=== PATIENT | male | born 1955 | race Caucasian/White ===

== ENCOUNTER → 2019-08-25 09:09 | Outpatient (CLI) | payer OTHER, SELFPAY ==
--- NOTE | 2019-08-25 | DI.US.S_ITS ---
PROCEDURE: US ABDOMEN COMPLETE INDICATIONS: RUQ PAIN TECHNIQUE: Real-time scanning was performed of the abdominal and retroperitoneal organs, with image documentation. COMPARISON: None. FINDINGS: Liver: Liver is normal in size and homogeneous in echotexture. Gallbladder: Gallbladder is normal in sonographic appearance without gallstones, gallbladder wall thickening, pericholecystic fluid, or abnormal sonographic Wilson's. Biliary ducts: Intrahepatic bile ducts are non-dilated. Extrahepatic bile duct caliber measures 5 mm. Normal is 6-7 mm or less in diameter, or 10 mm or less post-cholecystectomy. Pancreas: Visualized portions of the pancreas are sonographically normal. Spleen: Spleen is normal in size and homogeneous in echotexture. Kidneys: Kidneys are normal in size and echotexture. Right kidney measures 10.4 cm long; left kidney measures 10.9 cm long. There are small echogenic foci in the bilateral kidneys. Largest on the right measures 4 mm. Largest on the left measures approximately 4 mm. No hydronephrosis. No solid masses. Aorta: Visualized aorta is normal in caliber at less than 3 cm. Iliacs: Proximal common iliac arteries are normal in caliber at less than 2.5 cm. IVC: Intrahepatic inferior vena cava is patent. Miscellaneous: No free abdominal fluid. IMPRESSION: Echogenic foci identified in the bilateral kidney possibly representing nonobstructing renal stones. Otherwise, no sonographic abnormalities identified in the abdomen to explain patient's right upper quadrant abdominal pain. Dictated by: William Pagan M.D. on 08/25/2019 at 11:43 Approved by: William Pagan M.D. on 08/25/2019 at 11:51
== END ==
PROVIDERS: PCP Family Medicine; Referring Provider Family Medicine; Visit Provider Family Medicine
DX: R10.11 Right upper quadrant pain (principal)
CPT/HCPCS: 76700

== ENCOUNTER → 2021-03-06 11:57 | Outpatient (CLI) | payer OTHER, SELFPAY ==
[2021-03-06 21:15] LABS: COVID19 - ORCAS (NP or Nasal) Negative (Negative)
== END ==
PROVIDERS: PCP Family Medicine; Referring Provider Physician Assistant Medical; Visit Provider Physician Assistant Medical
DX: Z20.822 Contact with and (suspected) exposure to COVID-19 (principal)
CPT/HCPCS: U0003

== ENCOUNTER → 2021-11-13 09:18 | Outpatient (CLI) | payer OTHER, SELFPAY ==
[2021-11-13 19:19] LABS: Add Manual Diff / Slide Review NO; Basophils Absolute Auto 0 /uL (0-100); Basophils Percent Auto 0.6 % (0-2); Eosinophils Absolute Auto 100 /uL (0-450); Eosinophils Percent Auto 1.8 % (2-4); Hematocrit 44.2 % (41-53); Hemoglobin 14.8 g/dL (13.5-17.5); Lymphocytes Absolute Auto 900 /uL (1100-4500); Mean Corpuscular HGB Conc 33.5 % (30-36); Mean Corpuscular Hemoglobin 32.8 PG (26-34); Mean Corpuscular Volume 97.9 fL (80-100); Monocytes Absolute Auto 500 /uL (0-900); Monocytes Percent Auto 11.8 % (3-14); Neutrophils Absolute Auto 2800 /uL (1500-7000); Neutrophils Percent Auto 64.8 % (50-75); Platelet Count 265 X10^3/uL (150-400); Red Blood Cell Count 4.51 X10^6/uL (4.5-5.9); Red Cell Distribution Width 13.6 % (11.6-14.8); White Blood Cell Count 4.4 X10^3/uL (4.5-11.0)
[2021-11-13 19:30] LABS: Alanine Aminotransferase 34 IU/L (<50); Albumin 4.3 g/dL (3.5-5.0); Albumin Globulin Ratio 1.6 (1.0-2.8); Alkaline Phosphatase 78 U/L (38-126); Aspartate Aminotransferase 38 IU/L (17-59); BUN Creatinine Ratio 18.7 (6-22); Bilirubin Total 0.7 mg/dL (0.2-1.3); Blood Urea Nitrogen 17 mg/dL (9-20); Carbon Dioxide 27 mmol/L (22-32); Chloride 103 mmol/L (98-107); Cholesterol 220 mg/dL (140-199); Estimated Glomerular Filt Rate > 60 mL/min (>60); Globulin 2.7 g/dL (1.7-4.1); Glucose 107 mg/dL (80-110); HDL Cholesterol 91 mg/dL (40-60); HEMOLYSIS < 15 (0-50); LDL Cholesterol Calculated 106 mg/dL (<100); Potassium 4.3 mmol/L (3.4-5.1); Sodium 139 mmol/L (137-145); Triglycerides 114 mg/dL (35-150)
[2021-11-13 19:46] LABS: Vitamin D 25 Hydroxy (D3) 39.9 ng/mL (30.0-100.0)
[2021-11-13 20:01] LABS: Prostate Specific Antigen Scrn 2.11 ng/mL (0.1-4.0)
== END ==
PROVIDERS: PCP Family Medicine; Visit Provider Family Medicine
DX: E78.00 Pure hypercholesterolemia, unspecified (principal); Z12.11 Encounter for screening for malignant neoplasm of colon; Z12.5 Encounter for screening for malignant neoplasm of prostate; Z13.1 Encounter for screening for diabetes mellitus; Z13.6 Encounter for screening for cardiovascular disorders
CPT/HCPCS: 80053; 80061; 82306; 85025; G0103

== ENCOUNTER → 2023-04-17 12:48 | Outpatient (CLI) | payer MEDICARE, SELFPAY | PROVIDERS: PCP Family Medicine; Visit Provider Physician Assistant | DX: R10.9 Unspecified abdominal pain (principal) | CPT/HCPCS: 87086 ==

== ENCOUNTER → 2023-04-25 10:43 | Outpatient (CLI) | payer MEDICARE, SELFPAY ==
[2023-04-25 19:15] LABS: Add Manual Diff / Slide Review NO; Basophils Absolute Auto 0 /uL (0-100); Basophils Percent Auto 0.5 % (0-2); Eosinophils Absolute Auto 100 /uL (0-450); Eosinophils Percent Auto 1.4 % (2-4); Hematocrit 43.3 % (41-53); Hemoglobin 14.9 g/dL (13.5-17.5); Lymphocytes Absolute Auto 1500 /uL (1100-4500); Lymphocytes Percent Auto 24.7 % (25-40); Mean Corpuscular HGB Conc 34.4 % (30-36); Mean Corpuscular Hemoglobin 33.3 PG (26-34); Mean Corpuscular Volume 96.7 fL (80-100); Monocytes Absolute Auto 600 /uL (0-900); Monocytes Percent Auto 10.5 % (3-14); Neutrophils Absolute Auto 3700 /uL (1500-7000); Neutrophils Percent Auto 62.9 % (50-75); Platelet Count 220 X10^3/uL (150-400); Red Blood Cell Count 4.48 X10^6/uL (4.5-5.9); Red Cell Distribution Width 13.6 % (11.6-14.8); White Blood Cell Count 5.9 X10^3/uL (4.5-11.0)
[2023-04-25 19:34] LABS: Alanine Aminotransferase 32 IU/L (<50); Albumin 4.1 g/dL (3.5-5.0); Albumin Globulin Ratio 1.6 (1.0-2.8); Alkaline Phosphatase 76 U/L (38-126); Aspartate Aminotransferase 29 IU/L (17-59); BUN Creatinine Ratio 18.8 (6-22); Bilirubin Total 0.7 mg/dL (0.2-1.3); Blood Urea Nitrogen 16 mg/dL (9-20); Calcium 8.9 mg/dL (8.4-10.2); Carbon Dioxide 28 mmol/L (22-32); Chloride 108 mmol/L (98-107); Cholesterol 236 mg/dL (140-199); Estimated Glomerular Filt Rate > 60 mL/min (>60); Globulin 2.6 g/dL (1.7-4.1); Glucose 99 mg/dL (80-110); HDL Cholesterol 69 mg/dL (40-60); HEMOLYSIS < 15 (0-50); LDL Cholesterol Calculated 138 mg/dL (<100); Lipase 114 U/L (23-300); Potassium 4.1 mmol/L (3.4-5.1); Sodium 139 mmol/L (137-145); Total Protein 6.7 g/dL (6.3-8.2); Triglycerides 145 mg/dL (35-150)
[2023-04-25 19:52] LABS: Prostate Specific Antigen Scrn 1.95 ng/mL (0.1-4.0)
== END ==
PROVIDERS: PCP Family Medicine; Visit Provider Family Medicine
DX: E78.00 Pure hypercholesterolemia, unspecified (principal); Z12.5 Encounter for screening for malignant neoplasm of prostate; R10.13 Epigastric pain; R79.9 Abnormal finding of blood chemistry, unspecified
CPT/HCPCS: 80053; 80061; 83690; 85025; G0103

== ENCOUNTER 2024-02-18 14:31 | Emergency (ER) | payer MEDICARE, SELFPAY ==
[2024-02-18 14:34] VITALS: BP 140/88; PULSE 71; RESP 18; TEMP 36.8; O2SAT 98; BMI 23.1
--- NOTE | 2024-02-18 16:53 | ED_ITS ---
HPI - Anxiety <Connie Tucker PA-C - Last Filed: 02/18/24 19:40> General Chief Complaint: Anxiety Stated Complaint: severe anxiety attack Time Seen by Provider: 02/18/24 16:52 Source: patient Mode of arrival: Ambulatory History of Present Illness HPI narrative: Mr. Dawkins is a very pleasant 68-year-old male with a past medical history of depression, anxiety who presents to the emergency department for worsening anxiety/anxiety attack. Patient is with his who contributes to the history. Patient states he has struggled with anxiety for the majority of his life. States that recently however the anxiety is becoming crippling which prompted his ER arrival because he is interested in medications. Patient was on Prozac many many years ago for depression and did well however has been off it for a long time. His PCP is Dr. Mars Hagen however he does not have an appointment until March 05. He also has a therapist Dr. Hinojosa. Patient reports many life stressors right now including issues with his house and with his marriage. No suicidal or homicidal ideation. No physical pain. No drug use. He has about 1-2 beers a month. Related Data Previous Rx's Medication Instructions Recorded hydroxyzine HCl 25 mg tablet 25 mg PO QID PRN anxiety #20 tabs 02/18/24 Allergies Allergy/AdvReac Type Severity Reaction Status Date / Time Opioids - Morphine Analogues Allergy Mild Verified 04/25/23 10:36 Review of Systems <Connie Tucker PA-C - Last Filed: 02/18/24 19:40> Review of Systems ROS Unobtainable: All systems reviewed & are unremarkable except as noted in HPI and below Patient History <Connie Tucker PA-C - Last Filed: 02/18/24 19:40> Social History Smoking Status: Never smoker Smoking Status: Never smoker Exam <Connie Tucker PA-C - Last Filed: 02/18/24 19:40> Narrative Exam Narrative: GENERAL: 68 year old patient appears stated age. Well-developed patient, in no acute distress. HEAD: Atraumatic. Normocephalic. CARDIOVASCULAR: Regular rate and rhythm. RESPIRATORY: ?Nonlabored respirations. ?Speaking in clear, full sentences. ?Clear to auscultation. Breath sounds equal bilaterally. No wheezes, rales, or rhonchi. ? EXTREMITIES: No edema or joint tenderness. NEURO: AOx3. ?Clear speech. ?Moves all 4 extremities appropriately. SKIN: No rash or erythema of visible areas Initial Vital Signs Initial Vital Signs: Vital Signs Temperature 98.2 F 02/18/24 14:34 Pulse Rate 71 02/18/24 14:34 Respiratory Rate 18 02/18/24 14:34 Blood Pressure 140/88 02/18/24 14:34 Pulse Oximetry 98 02/18/24 14:34 Oxygen Delivery Method Room Air 02/18/24 14:34 <João Osorio MD - Last Filed: 02/18/24 20:51> Initial Vital Signs Initial Vital Signs: Vital Signs Temperature 98.2 F 02/18/24 14:34 Pulse Rate 71 02/18/24 14:34 Respiratory Rate 18 02/18/24 14:34 Blood Pressure 140/88 02/18/24 14:34 Pulse Oximetry 98 02/18/24 14:34 Oxygen Delivery Method Room Air 02/18/24 14:34 Course <Connie Tucker PA-C - Last Filed: 02/18/24 19:40> Orders Ordered: ED Orders 02/18/24 14:42 Consult to [facility] [place] - Hospital Tray Service Worker Stat Hydroxyzine HCl (Hydroxyzine Hcl 25 Mg Tablet) 25 mg PO QID Stop: 02/19/24 23:59 Discontinued Medications Hydroxyzine HCl (Hydroxyzine Hcl 25 Mg Tablet) 25 mg PO NOW ONE Stop: 02/18/24 17:21 Last Admin: 02/18/24 17:27 Dose: 25 mg Documented By: IVON Vital Signs Vital signs: Vital Signs - 8 hr 02/18/24 14:34 02/18/24 16:57 02/18/24 16:57 Temperature 98.2 F Pulse Rate 71 59 L Respiratory Rate 18 Blood Pressure 140/88 163/91 H Pulse Oximetry 98 96 Oxygen Delivery Method Room Air 02/18/24 18:01 02/18/24 18:01 Temperature Pulse Rate 58 L Respiratory Rate Blood Pressure 128/80 Pulse Oximetry 98 Oxygen Delivery Method <João Osorio MD - Last Filed: 02/18/24 20:51> Orders Ordered: ED Orders 02/18/24 14:42 Consult to [facility] - Hospital Tray Service Worker Stat Hydroxyzine HCl (Hydroxyzine Hcl 25 Mg Tablet) 25 mg PO QID Stop: 02/19/24 23:59 Discontinued Medications Hydroxyzine HCl (Hydroxyzine Hcl 25 Mg Tablet) 25 mg PO NOW ONE Stop: 02/18/24 17:21 Last Admin: 02/18/24 17:27 Dose: 25 mg Documented By: IVON Vital Signs Vital signs: Vital Signs - 8 hr 02/18/24 14:34 02/18/24 16:57 02/18/24 16:57 Temperature 98.2 F Pulse Rate 71 59 L Respiratory Rate 18 Blood Pressure 140/88 163/91 H Pulse Oximetry 98 96 Oxygen Delivery Method Room Air 02/18/24 18:01 02/18/24 18:01 Temperature Pulse Rate 58 L Respiratory Rate Blood Pressure 128/80 Pulse Oximetry 98 Oxygen Delivery Method MDM - Anxiety <Connie Tucker PA-C - Last Filed: 02/18/24 19:40> [facility] Narrative Medical decision making narrative: 68-year-old male with a past medical history of depression, anxiety who presents to the emergency department for worsening anxiety/anxiety attack. Differential diagnosis includes but is not limited to generalized anxiety disorder, anxiety attack, panic disorder, etc. On exam the patient is in no acute distress, nontoxic-appearing, all vital signs within normal limits. Lungs clear to auscultation bilaterally. No lower extremity edema. He has good insight. No SI/HI. Discussed with the patient the importance of follow up with the PCP to start daily anxiety medication. We discussed hydroxyzine versus Ativan for breakthrough anxiety. He would like to try hydroxyzine at this time. Risk discussed of both medications. Provided with resources from social work. Patient feeling much improved after hydroxyzine. States it is his anxiety went from a 10/10 to a 2/10. He is interested in trying this medication if needed at home. Due to the holiday he was provided with a prepack and prescription was sent to his pharmacy for 25 mg up to 4 times daily if needed. Advised he follow up up promptly with PCP in therapist for further evaluation. We discussed ER return precautions. Patient verbalized understanding of all information is stable for discharge home. Discharge Plan Departure Patient Disposition: Home Clinical Impression: Anxiety Instructions: DI for Anxiety -- Adult Activity Restrictions/Additional Instructions: Dear Mr. Dawkins, Today you were evaluated in we discussed anxiety. I have prescribed you a medication called hydroxyzine 25 mg to take if needed for breakthrough anxiety. You may take this medication up to 4 times in 1 day. Please follow up with the primary care doctor to discuss getting started on a daily preventative anxiety medication. Please follow up with your primary care doctor within the next 2-3 days for ER follow-up. (If you do not have a PCP you can call [phone]. ?to schedule an appointment with an [facility] Primary Care Provider) IF YOU DEVELOP ANY NEW OR WORSENING SYMPTOMS, RETURN TO THE ER! Please read the attached instructions, they highlight more specific treatments a nd interventions for you at home. Thank you for letting me participate in your care, Connie Tucker PA-C Prescriptions: New hydroxyzine HCl 25 mg tablet 25 mg PO QID PRN (Reason: anxiety) Qty: 20 0RF Referrals: Mars Hagen MD [Primary Care Provider] - Stand Alone Forms: Patient Portal/API/Survey ED Sign-out <João Osorio MD - Last Filed: 02/18/24 20:51> Cosign ED Attending Coscassieature Attestation: I was immediately available in the department for consultation. This documentation has been reviewed and I agree with assessment and plan. Supervised by João Osorio MD
[2024-02-18 16:57] VITALS: BP 163/91; PULSE 59; O2SAT 96
[2024-02-18] MEDS: hydrOXYzine HCL 25 MG TABLET PO (17:27)
--- NOTE | 2024-02-18 17:32 | CM.SWNOTE ---
Addendum entered by Lacy Rodriguez 02/18/24 18:35: RN asks TECH BRAZER TESTER for lists of MH providers for couples counseling, TECH BRAZER TESTER searches patient's insurance website and prints out MH couples counselors that accept patient's insurance. RN to provide to patient upon d/c. VIOLETA Johnson Original Note: ED TECH BRAZER TESTER Note TECH BRAZER TESTER receives consult due to concern for patient's anxiety. TECH BRAZER TESTER reviews patient with RN and ED provider, it is reported that TECH BRAZER TESTER's services are not needed at this time as patient is connected with upcoming PCP and therapist appt. ED provider to provide patient with hydroxyzine to try in the ED. TECH BRAZER TESTER to be available as plan of care changes. VIOLETA Johnson
[2024-02-18 18:01] VITALS: BP 128/80; PULSE 58; O2SAT 98
== END 2024-02-18 19:12 | disposition home or self-care (01) ==
PROVIDERS: Emergency Provider Physician Assistant; PCP Family Medicine
DX: F41.9 Anxiety disorder, unspecified (principal)
CPT/HCPCS: 99283; A9270

== ENCOUNTER → 2024-04-08 09:39 | Outpatient (CLI) | payer MEDICARE, SELFPAY ==
[2024-04-08 21:54] LABS: Add Manual Diff / Slide Review NO; Basophils Absolute Auto 0 /uL (0-100); Basophils Percent Auto 0.8 % (0-2); Eosinophils Absolute Auto 100 /uL (0-450); Eosinophils Percent Auto 1.2 % (2-4); Hematocrit 43.8 % (41-53); Lymphocytes Absolute Auto 1300 /uL (1100-4500); Lymphocytes Percent Auto 21.6 % (25-40); Mean Corpuscular HGB Conc 34.1 % (30-36); Mean Corpuscular Hemoglobin 33.7 PG (26-34); Mean Corpuscular Volume 98.9 fL (80-100); Monocytes Absolute Auto 700 /uL (0-900); Monocytes Percent Auto 10.7 % (3-14); Neutrophils Absolute Auto 4000 /uL (1500-7000); Neutrophils Percent Auto 65.7 % (50-75); Platelet Count 260 X10^3/uL (150-400); Red Blood Cell Count 4.43 X10^6/uL (4.5-5.9); Red Cell Distribution Width 13.7 % (11.6-14.8); White Blood Cell Count 6.2 X10^3/uL (4.5-11.0)
[2024-04-08 22:23] LABS: BUN Creatinine Ratio 21.3 (6-22); Blood Urea Nitrogen 20 mg/dL (9-20); Calcium 9.3 mg/dL (8.4-10.2); Carbon Dioxide 28 mmol/L (22-32); Chloride 104 mmol/L (98-107); Cholesterol 265 mg/dL (140-199); Estimated Glomerular Filt Rate > 60 mL/min (>60); Glucose 98 mg/dL (80-110); HDL Cholesterol 86 mg/dL (40-60); HEMOLYSIS 19 (0-50); LDL Cholesterol Calculated 155 mg/dL (<100); Potassium 4.9 mmol/L (3.4-5.1); Sodium 138 mmol/L (137-145); Triglycerides 121 mg/dL (35-150)
[2024-04-08 23:01] LABS: Prostate Specific Antigen Scrn 2.14 ng/mL (0.1-4.0)
== END ==
PROVIDERS: PCP Family Medicine; Visit Provider Family Medicine
DX: Z13.1 Encounter for screening for diabetes mellitus (principal); Z12.5 Encounter for screening for malignant neoplasm of prostate; Z13.6 Encounter for screening for cardiovascular disorders; E78.00 Pure hypercholesterolemia, unspecified; F32.9 Major depressive disorder, single episode, unspecified; F41.1 Generalized anxiety disorder
CPT/HCPCS: 80048; 80061; 85025; G0103

== ENCOUNTER 2024-12-26 18:08 | Emergency (ER) | payer MEDICARE, SELFPAY ==
[2024-12-26 18:16] VITALS: BP 148/83; PULSE 60; RESP 18; TEMP 36.4; O2SAT 99; BMI 23.8
[2024-12-26] MEDS: TET,DIPH,PERTUSS(ACELL),VAC/PF 0.5 ML SYRINGE IM (20:53)
--- NOTE | 2024-12-26 22:04 | ED_ITS ---
HPI - Wound/Laceration General Chief Complaint: Wound/Laceration Stated Complaint: L hand laceration index knuckle Time Seen by Provider: 12/26/24 20:48 Source: patient Mode of arrival: Ambulatory History of Present Illness HPI narrative: 69-year-old male resident of [facility] sustained laceration left index finger from utility knife this afternoon. He does not take blood thinner medications. No other injuries. Last tetanus shot more than 5 years ago. Local pressure applied to stop bleeding. No difficulties extending or flexing his finger. No visible bone or tendon structures. Related Data Previous Rx's ?Medication ?Instructions ?Recorded buspirone 10 mg tablet 10 mg PO BID #180 tabs 03/26 finasteride 5 mg tablet 5 mg PO DAILY #90 tabs 08/10 sertraline 100 mg tablet 100 mg PO DAILY #90 tabs 08/19 Allergies Allergy/AdvReac Type Severity Reaction Status Date / Time Opioids - Morphine Analogues Allergy Mild Verified 12/26/24 18:19 Patient History Social History Smoking Status: Never smoker Smoking Status: Never smoker Exam Narrative Exam Narrative: GENERAL: Well-developed patient, in mild distress. HEAD: Atraumatic. Normocephalic. EYES: Pupils equal round and reactive. Extraocular motions intact. No scleral icterus. No injection or drainage. ENT: No obvious craniofacial traumatic changes. Airway patent. NECK: Trachea midline. Non tender CARDIOVASCULAR: Regular rate and rhythm without murmurs, gallops, or rubs. RESPIRATORY: Clear to auscultation. Breath sounds equal bilaterally. No wheezes, rales, or rhonchi. GASTROINTESTINAL: Abdomen soft, non-tender, nondistended. EXTREMITIES: Left index finger with some shortening due to old injuries well- healed, ulnar aspect lateral laceration 1.5 cm length oblique near level of middle IP joint, no visible tendinous structure, ligamentous structures, bony changes, foreign body. Full extension, able to flex as well. BACK: Nontender without deformity or crepitance. No flank tenderness. NEURO: AOx3. Motor functions grossly nonfocal. SKIN: No rash or erythema of visible areas Initial Vital Signs Initial Vital Signs: Vital Signs Temperature 97.5 F L 12/26/24 18:16 Pulse Rate 60 12/26/24 18:16 Respiratory Rate 18 12/26/24 18:16 Blood Pressure 148/83 H 12/26/24 18:16 Pulse Oximetry 99 12/26/24 18:16 Oxygen Delivery Method Room Air 12/26/24 18:16 Procedures Laceration Repair Laceration 1: Time of procedure: 23:00 Size (cm): 1.5 Description: linear Depth: simple, single layer Local Anesthetic: bupivacaine 0.25% (Jay digital block with good effect) Amount of anesthesia used (mL): 1.5 Pre-repair: wound explored and irrigated extensively Skin layer closed with: nylon Skin layer suture size: 4-0 Number of sutures: 4 Technique: simple, interrupted Course Orders Ordered: Discontinued Medications Acetaminophen (Acetaminophen 325 Mg Tablet) 650 mg PO NOW ONE Stop: 12/26/24 23:18 Last Admin: 12/26/24 23:21 Dose: 650 mg Documented By: RADHA Bacitracin (Bacitracin Oint 0.9 Gm Pckt) 1 applic TOP NOW ONE Stop: 12/26/24 23:28 Last Admin: 12/26/24 23:37 Dose: 1 applic Documented By: RADHA Diphtheria/Tetanus/Acell Pertussis (Tet,Diph,Pertuss(Acell),Vac/Pf 0.5 Ml Syringe) 0.5 ml IM .ONCE ONE Stop: 12/26/24 20:49 Last Admin: 12/26/24 20:53 Dose: 0.5 ml Documented By: RADHA Tramadol HCl (Tramadol 50 Mg Prepack) 1 bottle MISC DIRECTED ONE Stop: 12/26/24 23:18 Last Admin: 12/26/24 23:21 Dose: 1 bottle Documented By: RADHA Vital Signs Vital signs: Vital Signs - 8 hr 12/26/24 23:39 Pulse Rate 60 Respiratory Rate 18 Blood Pressure 126/82 Pulse Oximetry 97 Oxygen Delivery Method Room Air MDM - Wound/Laceration MDM Narrative Medical decision making narrative: 69-year-old male with left index finger laceration from utility knife this afternoon, no visible tendons or bone or foreign body or ligamentous structures on wound inspection after jay digital block. Primary wound closure with nylon after jay digital block, see separate procedure note. Tolerated well. Tetanus updated. Wound was cleaned and dressed, finger splint applied, with Coban flor wrap to adjacent middle finger. Advised wound check with PCP in 2 days on [place] home area, likely suture removal 10 days if no signs symptoms of infection. Return precautions discussed. Discharged home with . Discharge Plan Departure Patient Disposition: Home Clinical Impression: Laceration of finger Instructions: How to Care for a Laceration After Repair, DI for Laceration Repair Activity Restrictions/Additional Instructions: Finger laceration from utility knife yesterday afternoon. Tetanus shot given, updated. Jay digital block with good anesthesia effect, wound exploration did not expose any obvious structures of tendon, ligament, bone, foreign body. Prim gabo closure with 4 interrupted simple sutures with good approximation. Wound cleaning, dressing, finger splint, Coban wrap to adjacent finger. Oral dose of Tylenol given. Home pack of tramadol to use if throbbing pain later tonight. Wound check advised with your regular clinic on [facility] in the next 2-3 days. Hopefully there will not be development of infection. Suture removal hopefully at 10 days instead of 7 days given this is near/over a moving joint so it does not open and do his, though wound infection would precipitate earlier suture removal. Recheck earlier to this/nearest emergency department for any change worsening symptoms or any concerns prior. Prescriptions: No Action sertraline 100 mg tablet 100 mg PO DAILY Qty: 90 1RF buspirone 10 mg tablet 10 mg PO BID Qty: 180 3RF finasteride 5 mg tablet 5 mg PO DAILY Qty: 90 3RF Referrals: Mars Hagen MD [Primary Care Provider, [facility]] Stand Alone Forms: Patient Portal/API
--- NOTE | 2024-12-26 22:59 | PC.NURSE ---
laceration irrigated with approx 50 ml ns, pt tolerated well
[2024-12-26] MEDS: ACETAMINOPHEN 325 MG TABLET 650 MG PO (23:21)
[2024-12-26] MEDS: BACITRACIN OINT 0.9 GM PCKT 1 APPLIC TOP (23:37)
--- NOTE | 2024-12-26 23:38 | PC.NURSE ---
bacitracin telfa applied and then finger wrapped with gauze, then splint applied and flor taped to to 3rd digit with coban
[2024-12-26 23:39] VITALS: BP 126/82; PULSE 60; RESP 18; O2SAT 97
== END 2024-12-26 23:40 | disposition home or self-care (01) ==
PROVIDERS: Emergency Provider Emergency Medicine; PCP Family Medicine
DX: S61.211A Laceration without foreign body of left index finger without damage to nail, initial encounter (principal); W26.0XXA Contact with knife, initial encounter; Z23 Encounter for immunization
CPT/HCPCS: 12001; 90471; 99283; 99284; 90715